=== PATIENT | female | born 1950 | race Caucasian/White ===

== ENCOUNTER 2017-02-26 20:54 | Emergency (ER) | payer OTHER ==
[~2017-02-26] VITALS: Ht 160 cm; Wt 62.4 kg
[2017-02-26] MEDS ORDERED: AUGMENTIN875 MG PO (23:53)
[2017-02-27 01:43] VITALS: BP 103/75
== END 2017-02-27 01:44 | disposition home or self-care (01) ==
LOC: EME 20:54
PROC: 3E0234Z Introduction of Serum, Toxoid and Vaccine into Muscle, Percutaneous Approach (ICD-10-PCS; principal; 2017-02-26)
DX: S51.851A Open bite of right forearm, initial encounter (principal); W55.01XA Bitten by cat, initial encounter; Z23 Encounter for immunization
CPT/HCPCS: 99281; 99284

== ENCOUNTER 2017-10-12 14:38 | Observation (INO) | payer OTHER ==
[~2017-10-12] VITALS: Ht 160 cm; Wt 65.2 kg
[~2017-10-12 14:38] MED LIST: AUGMENTIN875 MG PO
[2017-10-12 16:04] LABS: HEMATOCRIT 25.9 % (36.0-46.0); HEMOGLOBIN 8.3 G/DL (11.9-15.5); MCH 25.7 PG (29.0-34.0); MCV 80.2 FL (83-99); PLATELET COUNT 523 K/uL (156-360); RBC DIS.WIDTH-SD 46.3 % (39-53); RED BLOOD COUNT 3.23 M/uL (3.80-5.20)
[2017-10-12 16:15] LABS: CHLORIDE 107 mEq/L (99-109); POTASSIUM 4.9 mEq/L (3.7-5.4); SODIUM 139 mEq/L (136-147)
[2017-10-12 16:17] LABS: GLUCOSE 106 mg/dL (70-99)
[2017-10-12 16:21] LABS: CREATININE 0.8 mg/dL (0.6-1.3); GFR ESTIMATE (CALCULATED) > 59 mL/min/
[2017-10-12 16:22] LABS: UREA NITROGEN (BUN) 18 mg/dL (9-23)
[2017-10-12 17:25] LABS: INTER. NORMALIZED RATIO 1.2
[2017-10-12 17:28] LABS: PTT 28.1 SEC (25-37)
[2017-10-12 17:34] LABS: ALBUMIN 3.4 g/dL (3.2-4.8)
[2017-10-12] MEDS ORDERED: VENTOLIN HFA18 GM IH (17:36)
[2017-10-12] MEDS ORDERED: LEVOFLOXACIN500 MG PO (17:37)
[2017-10-12 17:38] LABS: TOTAL BILIRUBIN 0.3 mg/dL (0.0-1.0)
[2017-10-12] MEDS ORDERED: LEVOTHYROXINE100 MCG PO (17:38)
[2017-10-12] MEDS ORDERED: LISINOPRIL10 MG PO (17:38)
[2017-10-12 17:39] LABS: ALKALINE PHOSPHATASE 68 IU/L (3-129)
[2017-10-12] MEDS ORDERED: ESOMEPRAZOLE MA40 MG PO (17:39)
[2017-10-12] MEDS ORDERED: DESVENLAFAXINE100 M3 PO (17:39)
[2017-10-12] MEDS ORDERED: PROBIOTIC1 EAC1 PO (17:40)
[2017-10-12] MEDS ORDERED: METOCLOPRAMIDE H5 MG PO (17:40)
[2017-10-12] MEDS ORDERED: MAGNESIUM400 M1 PO (17:41)
[2017-10-12] MEDS ORDERED: MULTIPLE VITAM1 EAC1 PO (17:41)
[2017-10-12 17:42] LABS: AST (GOT) 17 IU/L (2-34); DIRECT BILIRUBIN 0.2 mg/dL (0.0-0.3)
[2017-10-12 17:43] LABS: ALT (GPT) 9 IU/L (3-49)
[2017-10-12 17:46] LABS: TROP-I INTERPRETATION NEGATIVE; TROPONIN-I 0.03 ng/mL (0.0-0.30)
[2017-10-12 19:50] LABS: THYROTROPIN (TSH) 0.92 MIU/L (0.4-5.5)
[2017-10-12 19:56] LABS: FERRITIN 4 NG/ML (10-291)
[2017-10-12 20:30] VITALS: BP 117/80
[2017-10-12 21:13] LABS: TRANSFERRIN (TIBC) 238.8 mg/dL (215-380)
[2017-10-12 21:26] VITALS: BP 110/76
[2017-10-12 21:31] LABS: IRON 23 MCG/DL (35-150); TRANSFERRIN SATUR. 10 % (20-55)
[2017-10-12 21:59] VITALS: BP 126/83
[2017-10-12 22:50] VITALS: BP 132/75
[2017-10-13] VITALS (9 sets, daily range): BP systolic 109–172; BP diastolic 70–86
[2017-10-13 05:49] LABS: HEMATOCRIT 31.1 % (36.0-46.0); HEMOGLOBIN 9.5 G/DL (11.9-15.5)
[2017-10-13 05:51] LABS: MCV 84.5 FL (83-99)
[2017-10-13 06:04] LABS: CHLORIDE 112 MEQ/L (99-109); CREATININE 0.8 MG/DL (0.6-1.3); GFR ESTIMATE (CALCULATED) > 59 mL/min/; GLUCOSE 92 mg/dL (70-99); POTASSIUM 4.4 MEQ/L (3.7-5.4); SODIUM 141 MEQ/L (136-147); UREA NITROGEN (BUN) 13 mg/dL (9-23)
[2017-10-13 12:00] LABS: HEMATOCRIT 30.5 % (36.0-46.0); HEMOGLOBIN 9.6 G/DL (11.9-15.5); MCV 83.8 FL (83-99)
[2017-10-13 13:12] LABS: STOOL OCCULT BLD 1ST SPECIMEN NEGATIVE
[2017-10-13] MEDS ORDERED: NEXIUM40 MG PO (15:53)
[2017-10-13 18:54] LABS: HEMATOCRIT 33.6 % (36.0-46.0); HEMOGLOBIN 10.6 G/DL (11.9-15.5)
== END 2017-10-13 19:59 | disposition home or self-care (01) ==
LOC: EME 14:38 → EDOF 18:24 → ENRESERV 18:26 → 4SOUTH 20:23
PROVIDERS: Emergency Medicine; Hospitalist; Internal Medicine
DX: D62 Acute posthemorrhagic anemia (principal); K29.61 Other gastritis with bleeding; K22.70 Barrett's esophagus without dysplasia; D50.9 Iron deficiency anemia, unspecified; R42 Dizziness and giddiness; R53.1 Weakness; D47.3 Essential (hemorrhagic) thrombocythemia; I10 Essential (primary) hypertension; E03.9 Hypothyroidism, unspecified; F32.9 Major depressive disorder, single episode, unspecified; K44.9 Diaphragmatic hernia without obstruction or gangrene; K21.0 Gastro-esophageal reflux disease with esophagitis; Z79.82 Long term (current) use of aspirin; K25.9 Gastric ulcer, unspecified as acute or chronic, without hemorrhage or perforation
CPT/HCPCS: 71046; 80048; 80076; 82272; 82728; 83540; 84443; 84466; 84484; 85014; 85018; 85027; 85610; 85730; 86850; 86900; 86901; 86920; 88305; 88342 TC; 93005; 99281; 99285; C9113; G0378; J7030; P9016